=== PATIENT | female | born 1950 | race African-American/Black ===

== ENCOUNTER 2016-08-11 16:53 | Inpatient (IN) | payer MEDICARE, MEDICAID ==
[~2016-08-11] VITALS: Ht 170.2 cm; Wt 73.6 kg
[2016-08-11] MEDS ORDERED: SODIUM CHLORIDE 0.9% 1,000 ML IV ONE (17:12)
[2016-08-11] MEDS ORDERED: DILTIAZEM HCL 25 MG/5 ML VIAL IV ONE (17:15)
[2016-08-11] MEDS ORDERED: ASPirin 81 mg TAB PO ONE (17:15)
[2016-08-11] MEDS ORDERED: DILTIAZEM 125mg/125ml BAG KIT 125 ML IV ONE (18:00)
[2016-08-11 18:32] LABS: Basophils # (auto) 0 uL; Basophils % (auto) 0.3 % (0.0-2.0); Eosinophils # (auto) 0.1 uL; Eosinophils % (auto) 0.5 % (0.0-7.0); Hematocrit 29.9 % (36.0-46.0); Hemoglobin 9.7 g/dL (12.2-16.2); Lymphocytes # (auto) 2.7 uL; Lymphocytes % (auto) 23.5 % (10.0-50.0); Mean Corpuscular Hemoglobin 27.6 pg (28.0-32.0); Mean Corpuscular Hgb Conc. 32.5 g/dL (32.0-36.0); Mean Corpuscular Volume 84.9 fL (80.0-100.0); Mean Platelet Volume 8.5 fL (7.4-10.4); Neutrophils # (auto) 7.5 uL; Neutrophils % (auto) 66.7 % (37.0-80.0); Platelet Count (auto) 294 10^3/uL (140-450); White Blood Cell 11.3 10^3/uL (4.4-10.8)
[2016-08-11 18:37] LABS: INR 1.2 (0.9-1.15); Prothrombin Time 13.1 sec (9.37-12.3)
[2016-08-11 18:40] LABS: Albumin 2.9 g/dL (3.4-5.0); BUN/Creatinine Ratio 28.1; Calcium 8.7 mg/dL (8.5-10.1); Magnesium 1.7 mg/dL (1.6-2.6); Potassium 3.5 mmol/L (3.5-5.1)
[2016-08-11 18:48] LABS: Bilirubin, Total 0.4 mg/dL (0.2-1.0); Total Protein 6.9 g/dL (6.4-8.2)
[2016-08-11] MEDS ORDERED: AMIODARONE HCL 150 MG in D5W 5% 100 ML IV ONE (19:00)
[2016-08-11 19:02] LABS: B-Type Natriuretic Peptide 27.86 pg/mL (0-100)
[2016-08-11 19:08] LABS: Temperature: 23.9 C (20.0-25.0)
[2016-08-11] MEDS ORDERED: AMIODARONE HCL 900 MG in DEXTROSE 500 ML IV SCH (19:10)
[2016-08-11] MEDS ORDERED: MORPHINE SULF INJ 2 MG/ML SYRINGE 1ML IV PRN (19:15)
[2016-08-11] MEDS ORDERED: TEMAZEPAM 15 MG CAP PO PRN (19:15)
[2016-08-11] MEDS ORDERED: NITROGLYCERIN 0.4 MG SL TAB SL PRN (19:15)
[2016-08-11] MEDS ORDERED: DOCUSATE SOD 100 MG CAP PO PRN (19:15)
[2016-08-11] MEDS ORDERED: ONDANSETRON HCL 4 MG/2 ML VIAL IV PRN (19:15)
[2016-08-11] MEDS ORDERED: ACETAMINOPHEN 325 MG TAB PO PRN (19:15)
[2016-08-11] MEDS: ENOXAPARIN SOD 40 MG/0.4 ML SYRINGE SC SCH (20:34)
[2016-08-11 21:24] LABS: Urine Bilirubin Negative (Negative); Urine Blood Negative /uL (Negative); Urine Color Yellow (Yellow); Urine Glucose Normal (Normal); Urine Hyaline Cast FEW /lpf (0 - 2); Urine Ketone Negative (Negative); Urine Nitrite Negative (Negative); Urine RBC <1 /hpf (0 - 4); Urine Squamous Epithelial Cell FEW /hpf (<5); Urine Urobilinogen Normal (Negative)
[2016-08-11] MEDS ORDERED: FAMOTIDINE 20 MG TAB PO SCH (22:00)
[2016-08-11 23:36] VITALS: BP 124/99
[2016-08-12] VITALS (93 sets, daily range): BP systolic 92–235; BP diastolic 35–99
[2016-08-12] MEDS: SENNA 8.6 MG TAB PO SCH ×2 (00:45→22:00)
[2016-08-12] MEDS: SODIUM CHLOR 0.9% PF (SALINE LOCK) 10ML VIAL IV SCH ×5 (00:45→22:00)
[2016-08-12] MEDS: METOPROLOL TARTRATE 25 MG TAB PO SCH ×4 (00:45→23:00)
[2016-08-12] MEDS: OXYBUTYNIN CHL 5 MG TAB PO SCH ×4 (00:45→22:00)
[2016-08-12] MEDS: BOOST PLUS 8 ounce PO SCH ×5 (00:45→22:00)
[2016-08-12] MEDS: ATORVASTATIN 20 MG TAB PO SCH ×2 (00:45→22:00)
[2016-08-12] MEDS: AMIODARONE HCL 900 MG in DEXTROSE 500 ML IV SCH (01:14)
[2016-08-12 04:19] LABS: Basophils # (auto) 0.1 uL; Basophils % (auto) 0.9 % (0.0-2.0); Eosinophils # (auto) 0.2 uL; Eosinophils % (auto) 1.5 % (0.0-7.0); Hematocrit 28.3 % (36.0-46.0); Hemoglobin 9.2 g/dL (12.2-16.2); Lymphocytes # (auto) 4.1 uL; Lymphocytes % (auto) 34.5 % (10.0-50.0); Mean Corpuscular Hemoglobin 27.8 pg (28.0-32.0); Mean Corpuscular Hgb Conc. 32.5 g/dL (32.0-36.0); Mean Corpuscular Volume 85.4 fL (80.0-100.0); Mean Platelet Volume 8.6 fL (7.4-10.4); Monocytes # (auto) 1.2 uL; Monocytes % (auto) 10.4 % (0.0-12.0); Neutrophils # (auto) 6.3 uL; Neutrophils % (auto) 52.7 % (37.0-80.0); Platelet Count (auto) 280 10^3/uL (140-450); White Blood Cell 11.9 10^3/uL (4.4-10.8)
[2016-08-12 04:57] LABS: Albumin 2.7 g/dL (3.4-5.0); Calcium 8.3 mg/dL (8.5-10.1); Potassium 3.8 mmol/L (3.5-5.1)
[2016-08-12 04:58] LABS: BUN/Creatinine Ratio 35.9
[2016-08-12 05:03] LABS: Bilirubin, Total 0.5 mg/dL (0.2-1.0); Total Protein 6.5 g/dL (6.4-8.2)
[2016-08-12] MEDS: LEVOTHYROXINE SODIUM 100 MCG TAB PO SCH (06:37)
[2016-08-12] MEDS ORDERED: ASPirin-EC 325mg tab PO SCH (10:00)
[2016-08-12] MEDS: ENOXAPARIN SOD 40 MG/0.4 ML SYRINGE SC SCH (10:40)
[2016-08-12] MEDS: PANTOPRAZOLE 40 MG TAB PO SCH (10:41)
[2016-08-12] MEDS: MULTIPLE VITAMIN TAB PO SCH (10:41)
[2016-08-12] MEDS: LISINOPRIL 20 MG TAB PO SCH (10:41)
[2016-08-12] MEDS: NIFEdipine ER 30 MG TAB PO SCH (11:23)
[2016-08-12] MEDS: cloNIDine HCL 0.1 MG TAB PO PRN ×2 (12:24→14:37)
[2016-08-12] MEDS ORDERED: LIDOCAINE 1% HCL (LOCAL ANESTH.) INJ 20ML MDV ID ONE (14:30)
[2016-08-12] MEDS: MORPHINE SULF INJ 2 MG/ML SYRINGE 1ML IV PRN (14:37)
[2016-08-12] MEDS: [UNRECOGNIZED DRUG - OTHER] TOP SCH (19:59)
[2016-08-12] MEDS ORDERED: PATIENTS OWN MEDICATION (ELIQUIS 5 MG) PO SCH (22:00)
[2016-08-12] MEDS: APIXABAN 5 MG TAB PO SCH (22:00)
[2016-08-13] VITALS (61 sets, daily range): BP systolic 89–140; BP diastolic 26–83
[2016-08-13] MEDS: AMIODARONE HCL 900 MG in DEXTROSE 500 ML IV SCH (01:10)
[2016-08-13 03:58] LABS: Basophils # (auto) 0.1 uL; Basophils % (auto) 0.7 % (0.0-2.0); Eosinophils # (auto) 0.1 uL; Hematocrit 27.7 % (36.0-46.0); Lymphocytes # (auto) 2.9 uL; Lymphocytes % (auto) 22.5 % (10.0-50.0); Mean Corpuscular Hgb Conc. 32.7 g/dL (32.0-36.0); Mean Corpuscular Volume 85.6 fL (80.0-100.0); Mean Platelet Volume 8.6 fL (7.4-10.4); Monocytes # (auto) 1.2 uL; Neutrophils # (auto) 8.6 uL; Neutrophils % (auto) 66.8 % (37.0-80.0); Platelet Count (auto) 276 10^3/uL (140-450); Red Cell Distribution Width 15.8 % (11.6-16.0); White Blood Cell 12.9 10^3/uL (4.4-10.8)
[2016-08-13 04:26] LABS: Albumin 2.6 g/dL (3.4-5.0); BUN/Creatinine Ratio 27.3; Calcium 8.1 mg/dL (8.5-10.1); Potassium 3.9 mmol/L (3.5-5.1)
[2016-08-13 04:34] LABS: Bilirubin, Total 0.5 mg/dL (0.2-1.0); Total Protein 6.3 g/dL (6.4-8.2)
[2016-08-13] MEDS: OXYBUTYNIN CHL 5 MG TAB PO SCH ×3 (06:00→22:02)
[2016-08-13] MEDS: BOOST PLUS 8 ounce PO SCH ×4 (06:00→21:26)
[2016-08-13] MEDS: SODIUM CHLOR 0.9% PF (SALINE LOCK) 10ML VIAL IV SCH ×5 (06:00→21:26)
[2016-08-13] MEDS: LEVOTHYROXINE SODIUM 100 MCG TAB PO SCH (06:46)
[2016-08-13] MEDS: MORPHINE SULF INJ 2 MG/ML SYRINGE 1ML IV PRN (08:18)
[2016-08-13] MEDS ORDERED: ACETAMINOPHEN 325 MG TAB PO PRN (09:15)
[2016-08-13] MEDS ORDERED: EMOLCRE EX (09:39)
[2016-08-13] MEDS ORDERED: LEVO100T8 PO (09:39)
[2016-08-13] MEDS ORDERED: OMEP20CA5 PO (09:39)
[2016-08-13] MEDS ORDERED: ASPI81CH43 PO (09:39)
[2016-08-13] MEDS ORDERED: SENN-152 PO (09:39)
[2016-08-13] MEDS ORDERED: ATOR10TA52 PO (09:39)
[2016-08-13] MEDS ORDERED: LISI-646 PO (09:39)
[2016-08-13] MEDS ORDERED: METO25TA5 PO (09:39)
[2016-08-13] MEDS ORDERED: NIF10C PO (09:39)
[2016-08-13] MEDS: ENOXAPARIN SOD 40 MG/0.4 ML SYRINGE SC SCH (09:45)
[2016-08-13] MEDS: APIXABAN 5 MG TAB PO SCH ×2 (09:45→22:03)
[2016-08-13] MEDS: PANTOPRAZOLE 40 MG TAB PO SCH (09:46)
[2016-08-13] MEDS: NIFEdipine ER 30 MG TAB PO SCH (09:46)
[2016-08-13] MEDS: MULTIPLE VITAMIN TAB PO SCH (09:46)
[2016-08-13] MEDS: METOPROLOL TARTRATE 25 MG TAB PO SCH ×2 (09:46→22:00)
[2016-08-13] MEDS: LISINOPRIL 20 MG TAB PO SCH (09:47)
[2016-08-13] MEDS ORDERED: AMIODARONE HCL 200 MG TAB PO SCH (10:00)
[2016-08-13] MEDS: [UNRECOGNIZED DRUG - OTHER] TOP SCH (10:53)
[2016-08-13] MEDS ORDERED: AZITHROMYCIN 500MG/D5W 250ML 250 ML IV ONE (12:00)
[2016-08-13] MEDS ORDERED: AMIODARONE HCL 200 MG TAB PO ONE (13:30)
[2016-08-13] MEDS: AMIODARONE HCL 200 MG TAB PO SCH (22:01)
[2016-08-13] MEDS: SENNA 8.6 MG TAB PO SCH (22:03)
[2016-08-13] MEDS: ATORVASTATIN 20 MG TAB PO SCH (22:03)
[2016-08-14 05:30] VITALS: BP 97/53
[2016-08-14] MEDS: SODIUM CHLOR 0.9% PF (SALINE LOCK) 10ML VIAL IV SCH ×5 (05:48→22:23)
[2016-08-14] MEDS: BOOST PLUS 8 ounce PO SCH ×4 (05:49→22:23)
[2016-08-14] MEDS: AMIODARONE HCL 200 MG TAB PO SCH ×3 (06:00→22:24)
[2016-08-14] MEDS: OXYBUTYNIN CHL 5 MG TAB PO SCH ×3 (06:00→22:23)
[2016-08-14] MEDS: LEVOTHYROXINE SODIUM 100 MCG TAB PO SCH (06:51)
[2016-08-14 07:06] LABS: BUN/Creatinine Ratio 34.3; Calcium 8.3 mg/dL (8.5-10.1)
[2016-08-14 08:32] LABS: Basophils # (auto) 0.1 uL; Basophils % (auto) 0.7 % (0.0-2.0); Eosinophils # (auto) 0.3 uL; Eosinophils % (auto) 2.4 % (0.0-7.0); Hematocrit 26.2 % (36.0-46.0); Hemoglobin 8.6 g/dL (12.2-16.2); Lymphocytes # (auto) 4.2 uL; Lymphocytes % (auto) 32.8 % (10.0-50.0); Mean Corpuscular Hgb Conc. 33.1 g/dL (32.0-36.0); Mean Corpuscular Volume 84.7 fL (80.0-100.0); Monocytes # (auto) 1.2 uL; Monocytes % (auto) 9.5 % (0.0-12.0); Neutrophils % (auto) 54.6 % (37.0-80.0); Platelet Count (auto) 256 10^3/uL (140-450); Red Cell Distribution Width 15.6 % (11.6-16.0); White Blood Cell 12.8 10^3/uL (4.4-10.8)
[2016-08-14 09:06] VITALS: BP 108/57
[2016-08-14] MEDS: METOPROLOL TARTRATE 25 MG TAB PO SCH ×2 (10:00→22:24)
[2016-08-14] MEDS: [UNRECOGNIZED DRUG - OTHER] TOP SCH (10:00)
[2016-08-14] MEDS: APIXABAN 5 MG TAB PO SCH ×2 (10:59→22:23)
[2016-08-14] MEDS: LISINOPRIL 20 MG TAB PO SCH (11:00)
[2016-08-14] MEDS: PANTOPRAZOLE 40 MG TAB PO SCH (11:01)
[2016-08-14] MEDS: AZITHROMYCIN 500MG/D5W 250ML 250 ML IV SCH (11:31)
[2016-08-14] MEDS: MULTIPLE VITAMIN TAB PO SCH (11:31)
[2016-08-14 12:46] VITALS: BP 106/46
[2016-08-14] MEDS: HYDROcodone-ACET 5/325MG TAB PO PRN (14:25)
[2016-08-14] MEDS: ALBUTEROL SULF 2.5 MG/0.5ML(0.5%) NEB SOLN NEB SCH ×2 (14:53→19:13)
[2016-08-14 17:32] VITALS: BP 128/54
[2016-08-14 20:39] VITALS: BP 104/46
[2016-08-14 22:00] VITALS: BP 132/74
[2016-08-14] MEDS: SENNA 8.6 MG TAB PO SCH (22:23)
[2016-08-14] MEDS: ATORVASTATIN 20 MG TAB PO SCH (22:23)
[2016-08-15 05:35] VITALS: BP 134/57
[2016-08-15] MEDS: OXYBUTYNIN CHL 5 MG TAB PO SCH ×3 (05:57→23:31)
[2016-08-15] MEDS: BOOST PLUS 8 ounce PO SCH ×4 (05:58→22:00)
[2016-08-15] MEDS: SODIUM CHLOR 0.9% PF (SALINE LOCK) 10ML VIAL IV SCH ×5 (05:58→23:32)
[2016-08-15] MEDS: AMIODARONE HCL 200 MG TAB PO SCH ×3 (05:58→23:15)
[2016-08-15] MEDS: LEVOTHYROXINE SODIUM 100 MCG TAB PO SCH (05:58)
[2016-08-15 06:38] LABS: Basophils # (auto) 0 uL; Basophils % (auto) 0.4 % (0.0-2.0); Eosinophils # (auto) 0.3 uL; Eosinophils % (auto) 2.9 % (0.0-7.0); Hematocrit 28.1 % (36.0-46.0); Hemoglobin 9.3 g/dL (12.2-16.2); Lymphocytes # (auto) 2.9 uL; Lymphocytes % (auto) 25.2 % (10.0-50.0); Mean Corpuscular Hemoglobin 27.9 pg (28.0-32.0); Mean Corpuscular Volume 84.4 fL (80.0-100.0); Mean Platelet Volume 8.7 fL (7.4-10.4); Monocytes # (auto) 1.3 uL; Monocytes % (auto) 11.4 % (0.0-12.0); Neutrophils # (auto) 6.8 uL; Neutrophils % (auto) 60.1 % (37.0-80.0); Platelet Count (auto) 299 10^3/uL (140-450); Red Cell Distribution Width 15.9 % (11.6-16.0); White Blood Cell 11.3 10^3/uL (4.4-10.8)
[2016-08-15 07:01] LABS: Calcium 8.8 mg/dL (8.5-10.1)
[2016-08-15 07:03] LABS: BUN/Creatinine Ratio 32.5
[2016-08-15 07:29] VITALS: BP 115/63
[2016-08-15] MEDS: ALBUTEROL SULF 2.5 MG/0.5ML(0.5%) NEB SOLN NEB SCH ×4 (07:47→19:48)
[2016-08-15] MEDS: METOPROLOL TARTRATE 25 MG TAB PO SCH ×2 (10:00→23:14)
[2016-08-15] MEDS: [UNRECOGNIZED DRUG - OTHER] TOP SCH (10:00)
[2016-08-15] MEDS: APIXABAN 5 MG TAB PO SCH ×2 (10:13→23:15)
[2016-08-15] MEDS: LISINOPRIL 20 MG TAB PO SCH (10:13)
[2016-08-15] MEDS: MULTIPLE VITAMIN TAB PO SCH (10:13)
[2016-08-15] MEDS: PANTOPRAZOLE 40 MG TAB PO SCH (10:13)
[2016-08-15 11:26] VITALS: BP 133/55
[2016-08-15] MEDS: AZITHROMYCIN 500MG/D5W 250ML 250 ML IV SCH (12:18)
[2016-08-15] MEDS: HYDROcodone-ACET 5/325MG TAB PO PRN (14:16)
[2016-08-15 16:20] VITALS: BP 144/58
[2016-08-15 22:00] VITALS: BP 132/54
[2016-08-15] MEDS: SENNA 8.6 MG TAB PO SCH (23:15)
[2016-08-15] MEDS: ATORVASTATIN 20 MG TAB PO SCH (23:31)
[2016-08-16 05:00] VITALS: BP 156/61
[2016-08-16] MEDS: BOOST PLUS 8 ounce PO SCH ×2 (06:00→14:20)
[2016-08-16] MEDS: SODIUM CHLOR 0.9% PF (SALINE LOCK) 10ML VIAL IV SCH ×3 (06:19→14:21)
[2016-08-16] MEDS: OXYBUTYNIN CHL 5 MG TAB PO SCH ×2 (06:20→14:21)
[2016-08-16] MEDS: LEVOTHYROXINE SODIUM 100 MCG TAB PO SCH (06:20)
[2016-08-16] MEDS: AMIODARONE HCL 200 MG TAB PO SCH ×2 (06:20→14:22)
[2016-08-16] MEDS: ALBUTEROL SULF 2.5 MG/0.5ML(0.5%) NEB SOLN NEB SCH ×3 (06:22→14:39)
[2016-08-16 08:05] VITALS: BP 148/66
[2016-08-16] MEDS: HYDROcodone-ACET 5/325MG TAB PO PRN (08:24)
[2016-08-16 08:44] LABS: Basophils # (auto) 0 uL; Basophils % (auto) 0.4 % (0.0-2.0); Eosinophils # (auto) 0.3 uL; Eosinophils % (auto) 2.4 % (0.0-7.0); Hematocrit 28.3 % (36.0-46.0); Hemoglobin 9.3 g/dL (12.2-16.2); Lymphocytes # (auto) 3.6 uL; Lymphocytes % (auto) 31.5 % (10.0-50.0); Mean Corpuscular Hemoglobin 27.6 pg (28.0-32.0); Mean Corpuscular Hgb Conc. 32.9 g/dL (32.0-36.0); Mean Corpuscular Volume 83.8 fL (80.0-100.0); Mean Platelet Volume 8.2 fL (7.4-10.4); Monocytes # (auto) 0.9 uL; Monocytes % (auto) 7.9 % (0.0-12.0); Neutrophils # (auto) 6.6 uL; Neutrophils % (auto) 57.8 % (37.0-80.0); Platelet Count (auto) 305 10^3/uL (140-450); Red Cell Distribution Width 16.2 % (11.6-16.0); White Blood Cell 11.4 10^3/uL (4.4-10.8)
[2016-08-16] MEDS: [UNRECOGNIZED DRUG - OTHER] TOP SCH (10:00)
[2016-08-16] MEDS: METOPROLOL TARTRATE 25 MG TAB PO SCH (11:00)
[2016-08-16] MEDS: AZITHROMYCIN 500MG/D5W 250ML 250 ML IV SCH (11:00)
[2016-08-16] MEDS: APIXABAN 5 MG TAB PO SCH (11:00)
[2016-08-16] MEDS: MULTIPLE VITAMIN TAB PO SCH (11:01)
[2016-08-16] MEDS: PANTOPRAZOLE 40 MG TAB PO SCH (11:01)
[2016-08-16] MEDS: LISINOPRIL 20 MG TAB PO SCH (11:01)
[2016-08-16 11:14] VITALS: BP 129/52
[2016-08-16 16:06] VITALS: BP 132/69
== END 2016-08-16 17:30 | disposition home or self-care (01) | DRG 64 ==
LOC: ER 16:53 → EDBD 16:53 → TELE 16:54 → ICU WEST 23:23 → TELE-WESTW 08-13 17:07
PROVIDERS: ADMIT Internal Medicine; ATTEND Family Medicine
PROC: 02HV33Z Insertion of Infusion Device into Superior Vena Cava, Percutaneous Approach (ICD-10-PCS; principal; 2016-08-12)
DX: I63.9 Cerebral infarction, unspecified (principal); E43 Unspecified severe protein-calorie malnutrition; I50.33 Acute on chronic diastolic (congestive) heart failure; I48.92 Unspecified atrial flutter; I69.351 Hemiplegia and hemiparesis following cerebral infarction affecting right dominant side; I65.21 Occlusion and stenosis of right carotid artery; H53.461 Homonymous bilateral field defects, right side; I48.91 Unspecified atrial fibrillation; E78.5 Hyperlipidemia, unspecified; D63.8 Anemia in other chronic diseases classified elsewhere; E03.9 Hypothyroidism, unspecified; I70.0 Atherosclerosis of aorta; I11.0 Hypertensive heart disease with heart failure; I27.2 Other secondary pulmonary hypertension; I35.0 Nonrheumatic aortic (valve) stenosis; I69.320 Aphasia following cerebral infarction; Z82.49 Family history of ischemic heart disease and other diseases of the circulatory system; Z79.82 Long term (current) use of aspirin; Z79.01 Long term (current) use of anticoagulants; Z68.25 Body mass index [BMI] 25.0-25.9, adult
CPT/HCPCS: 36415; 36569; 70450; 70551; 71010; 80048; 80053; 81001; 82962; 83735; 83880; 84443; 84484; 85025; 85610; 85730; 87070; 87081; 87086; 87205; 92610; 93005; 93306; 93886; 94640; 95819; 96365; 96367; 96375; 97163; 97530; 99291; J7060

== ENCOUNTER 2016-11-13 23:45 | Inpatient (IN) | payer MEDICARE, MEDICAID ==
[~2016-11-13] VITALS: Ht 160 cm; Wt 67.3 kg
[~2016-11-13 23:45] MED LIST: ASPI81CH43 PO; ATOR10TA52 PO; EMOLCRE EX; LEVO100T8 PO; LISI-646 PO; METO25TA5 PO; NIF10C PO; OMEP20CA74 PO; SENN-152 PO
[2016-11-14 01:06] LABS: INR 1.05 (0.9-1.15); Partial Thromboplastin Time 29.2 sec (22.64-33.71); Prothrombin Time 11.4 sec (9.37-12.3)
[2016-11-14 01:12] LABS: Albumin 3.1 g/dL (3.4-5.0); Anion Gap 8 (5-15); Aspartate Aminotransferase 14 U/L (15-37); BUN/Creatinine Ratio 10.3; Blood Urea Nitrogen 6 mg/dL (7-18); Calcium 9.1 mg/dL (8.5-10.1); Carbon Dioxide 25 mmol/L (21-32); Chloride 107 mmol/L (98-107); GFR African American 134 mL/min; GFR Non-African American 111 mL/min; Glucose 96 mg/dL (74-106); Magnesium 2.4 mg/dL (1.6-2.6); Potassium 3.5 mmol/L (3.5-5.1); Sodium 140 mmol/L (136-145)
[2016-11-14 01:18] LABS: Alkaline Phosphatase 133 U/L (45-117); Bilirubin, Total 0.4 mg/dL (0.2-1.0); Total Protein 8.2 g/dL (6.4-8.2)
[2016-11-14 01:26] LABS: Basophils # (auto) 0.1 uL; Basophils % (auto) 0.6 % (0.0-2.0); CONDITION Y; DEFINITIVE SEE PRINTOUT; Eosinophils # (auto) 0.2 uL; Eosinophils % (auto) 1.5 % (0.0-7.0); Hematocrit 32.8 % (36.0-46.0); Hemoglobin 10.4 g/dL (12.2-16.2); Lymphocytes # (auto) 6.7 uL; Lymphocytes % (auto) 49.2 % (10.0-50.0); Mean Corpuscular Hemoglobin 27.4 pg (28.0-32.0); Mean Corpuscular Hgb Conc. 31.6 g/dL (32.0-36.0); Mean Corpuscular Volume 86.9 fL (80.0-100.0); Mean Platelet Volume 8.2 fL (7.4-10.4); Monocytes # (auto) 0.9 uL; Monocytes % (auto) 6.4 % (0.0-12.0); Neutrophils # (auto) 5.8 uL; Neutrophils % (auto) 42.3 % (37.0-80.0); Platelet Count (auto) 488 10^3/uL (140-450); Red Cell Distribution Width 17.2 % (11.6-16.0); White Blood Cell 13.6 10^3/uL (4.4-10.8)
[2016-11-14] MEDS ORDERED: ASPirin 81 mg TAB PO ONE (02:30)
[2016-11-14] MEDS ORDERED: CYCLOBENZAPRINE HCL 10 MG TAB PO PRN (06:45)
[2016-11-14] MEDS: SODIUM CHLORIDE 0.9% 1,000 ML IV SCH ×3 (06:57→16:23)
[2016-11-14] MEDS: LEVOTHYROXINE SODIUM 50 MCG TAB PO SCH (06:58)
[2016-11-14] MEDS ORDERED: cefTRIAXone 1GM/50ML D5W 50 ML IV ONE (08:00)
[2016-11-14 09:23] VITALS: BP 149/76
[2016-11-14] MEDS: PANTOPRAZOLE 40 MG/10 ML VIAL IV SCH (09:58)
[2016-11-14] MEDS: APIXABAN 5 MG TAB PO SCH ×2 (09:58→21:56)
[2016-11-14] MEDS: NIFEdipine ER 30 MG TAB PO SCH (09:59)
[2016-11-14] MEDS: METOPROLOL TARTRATE 50 MG TAB PO SCH ×2 (09:59→21:56)
[2016-11-14] MEDS ORDERED: ENOXAPARIN SOD 40 MG/0.4 ML SYRINGE SC SCH (10:00)
[2016-11-14] MEDS ORDERED: ASPirin 81 mg TAB PO SCH (10:00)
[2016-11-14] MEDS ORDERED: PATIENTS OWN MEDICATION (ELIQUIS 5 MG) PO SCH (10:00)
[2016-11-14 13:00] VITALS: BP 141/73
[2016-11-14] MEDS: OXYBUTYNIN CHL 5 MG TAB PO SCH ×2 (15:29→21:56)
[2016-11-14 16:13] LABS: Cholesterol 92 mg/dL (< 200); HDL Cholesterol 37 mg/dL (40-59); LDL Cholesterol 57 mg/dL (< 100); Triglycerides 56 mg/dL (< 150)
[2016-11-14 21:31] VITALS: BP 155/79
[2016-11-14] MEDS: ATORVASTATIN 20 MG TAB PO SCH (21:56)
[2016-11-15 05:12] VITALS: BP 128/66
[2016-11-15] MEDS: LEVOTHYROXINE SODIUM 50 MCG TAB PO SCH (06:13)
[2016-11-15] MEDS: OXYBUTYNIN CHL 5 MG TAB PO SCH ×3 (06:13→21:49)
[2016-11-15 06:21] LABS: Basophils # (auto) 0 uL; Basophils % (auto) 0.4 % (0.0-2.0); CONDITION Y; Eosinophils # (auto) 0.1 uL; Eosinophils % (auto) 1.2 % (0.0-7.0); Hematocrit 36.3 % (36.0-46.0); Hemoglobin 11.7 g/dL (12.2-16.2); Lymphocytes # (auto) 2.8 uL; Lymphocytes % (auto) 27.1 % (10.0-50.0); Mean Corpuscular Hemoglobin 28.4 pg (28.0-32.0); Mean Corpuscular Hgb Conc. 32.4 g/dL (32.0-36.0); Mean Corpuscular Volume 87.8 fL (80.0-100.0); Monocytes # (auto) 0.9 uL; Monocytes % (auto) 8.5 % (0.0-12.0); Neutrophils # (auto) 6.4 uL; Neutrophils % (auto) 62.8 % (37.0-80.0); Platelet Count (auto) 428 10^3/uL (140-450); Red Cell Distribution Width 18.2 % (11.6-16.0); White Blood Cell 10.2 10^3/uL (4.4-10.8)
[2016-11-15 07:20] LABS: Potassium 4.6 mmol/L (3.5-5.1)
[2016-11-15 07:21] LABS: BUN/Creatinine Ratio 10.3; Bilirubin, Total 0.3 mg/dL (0.2-1.0); Calcium 8.8 mg/dL (8.5-10.1); Total Protein 8.1 g/dL (6.4-8.2)
[2016-11-15 07:22] LABS: Albumin 2.8 g/dL (3.4-5.0)
[2016-11-15 08:00] VITALS: BP 128/66
[2016-11-15] MEDS: SODIUM CHLORIDE 0.9% 1,000 ML IV SCH (08:35)
[2016-11-15] MEDS: cefTRIAXone 1GM/50ML D5W 50 ML IV SCH (08:35)
[2016-11-15 09:00] VITALS: BP 146/71
[2016-11-15] MEDS: NIFEdipine ER 30 MG TAB PO SCH (09:51)
[2016-11-15] MEDS: APIXABAN 5 MG TAB PO SCH ×2 (09:51→21:49)
[2016-11-15] MEDS: METOPROLOL TARTRATE 50 MG TAB PO SCH ×2 (09:51→21:50)
[2016-11-15] MEDS: PANTOPRAZOLE 40 MG/10 ML VIAL IV SCH (09:52)
[2016-11-15] MEDS ORDERED: ASPirin 325 MG TAB PO SCH (10:00)
[2016-11-15 13:00] VITALS: BP 118/56
[2016-11-15 17:00] VITALS: BP 120/62
[2016-11-15] MEDS: ATORVASTATIN 20 MG TAB PO SCH (21:50)
[2016-11-15 22:00] VITALS: BP 125/63
[2016-11-16] MEDS: SODIUM CHLORIDE 0.9% 1,000 ML IV SCH ×2 (01:20→17:22)
[2016-11-16 05:14] VITALS: BP 124/61
[2016-11-16] MEDS: OXYBUTYNIN CHL 5 MG TAB PO SCH ×3 (05:43→21:46)
[2016-11-16] MEDS: LEVOTHYROXINE SODIUM 50 MCG TAB PO SCH (05:43)
[2016-11-16 07:37] VITALS: BP 131/63
[2016-11-16] MEDS: cefTRIAXone 1GM/50ML D5W 50 ML IV SCH (09:27)
[2016-11-16] MEDS: PANTOPRAZOLE 40 MG/10 ML VIAL IV SCH (09:27)
[2016-11-16] MEDS: APIXABAN 5 MG TAB PO SCH ×2 (09:27→21:44)
[2016-11-16] MEDS: NIFEdipine ER 30 MG TAB PO SCH (09:28)
[2016-11-16] MEDS: METOPROLOL TARTRATE 50 MG TAB PO SCH ×2 (09:28→21:46)
[2016-11-16] MEDS: BOOST PLUS 8 ounce PO SCH ×3 (12:31→21:46)
[2016-11-16 13:00] VITALS: BP 139/69
[2016-11-16 13:45] LABS: Urine Bilirubin Negative (Negative); Urine Blood TRACE /uL (Negative); Urine Color Yellow (Yellow); Urine Glucose Normal (Normal); Urine Ketone Negative (Negative); Urine Nitrite Negative (Negative); Urine RBC 8 /hpf (0 - 4); Urine Squamous Epithelial Cell FEW /hpf (<5); Urine Urobilinogen Normal (Negative)
[2016-11-16 16:57] VITALS: BP 145/64
[2016-11-16] MEDS: ACETAMINOPHEN 325 MG TAB PO PRN (21:43)
[2016-11-16] MEDS: ATORVASTATIN 20 MG TAB PO SCH (21:45)
[2016-11-16 22:00] VITALS: BP 137/67
[2016-11-16 23:30] VITALS: BP 127/63
[2016-11-17 05:26] LABS: Basophils # (auto) 0.1 uL; Basophils % (auto) 0.7 % (0.0-2.0); CONDITION Y; Eosinophils # (auto) 0.3 uL; Hematocrit 35.5 % (36.0-46.0); Hemoglobin 11.7 g/dL (12.2-16.2); Lymphocytes # (auto) 4.4 uL; Lymphocytes % (auto) 30.8 % (10.0-50.0); Mean Corpuscular Hemoglobin 28.5 pg (28.0-32.0); Mean Corpuscular Hgb Conc. 32.9 g/dL (32.0-36.0); Mean Corpuscular Volume 86.7 fL (80.0-100.0); Mean Platelet Volume 7.5 fL (7.4-10.4); Monocytes # (auto) 0.8 uL; Monocytes % (auto) 5.3 % (0.0-12.0); Neutrophils # (auto) 8.8 uL; Neutrophils % (auto) 61.2 % (37.0-80.0); Platelet Count (auto) 489 10^3/uL (140-450); Red Cell Distribution Width 17.3 % (11.6-16.0); White Blood Cell 14.4 10^3/uL (4.4-10.8)
[2016-11-17 05:48] LABS: Albumin 2.9 g/dL (3.4-5.0); Calcium 8.7 mg/dL (8.5-10.1); Potassium 4.5 mmol/L (3.5-5.1)
[2016-11-17] MEDS: ACETAMINOPHEN 325 MG TAB PO PRN (05:48)
[2016-11-17] MEDS: BOOST PLUS 8 ounce PO SCH ×4 (05:50→22:16)
[2016-11-17] MEDS: OXYBUTYNIN CHL 5 MG TAB PO SCH ×3 (05:50→22:17)
[2016-11-17 05:51] LABS: Bilirubin, Total 0.2 mg/dL (0.2-1.0)
[2016-11-17] MEDS: LEVOTHYROXINE SODIUM 50 MCG TAB PO SCH (06:40)
[2016-11-17 08:00] VITALS: BP 106/57
[2016-11-17] MEDS: cefTRIAXone 1GM/50ML D5W 50 ML IV SCH (08:45)
[2016-11-17] MEDS: METOPROLOL TARTRATE 50 MG TAB PO SCH ×2 (09:27→22:17)
[2016-11-17] MEDS: APIXABAN 5 MG TAB PO SCH ×2 (09:27→22:17)
[2016-11-17] MEDS: PANTOPRAZOLE 40 MG/10 ML VIAL IV SCH (09:28)
[2016-11-17] MEDS: NIFEdipine ER 30 MG TAB PO SCH (09:28)
[2016-11-17 13:00] VITALS: BP 117/61
[2016-11-17] MEDS: SODIUM CHLORIDE 0.9% 1,000 ML IV SCH (14:21)
[2016-11-17 17:00] VITALS: BP 130/68
[2016-11-17 20:00] VITALS: BP 146/63
[2016-11-17 22:00] VITALS: BP 146/63
[2016-11-17] MEDS: ATORVASTATIN 20 MG TAB PO SCH (22:17)
[2016-11-18] MEDS: SODIUM CHLORIDE 0.9% 1,000 ML IV SCH ×2 (03:20→20:10)
[2016-11-18 05:30] LABS: Basophils # (auto) 0.1 uL; Basophils % (auto) 0.7 % (0.0-2.0); CONDITION Y; Eosinophils # (auto) 0.2 uL; Eosinophils % (auto) 1.7 % (0.0-7.0); Hematocrit 33.5 % (36.0-46.0); Hemoglobin 10.9 g/dL (12.2-16.2); Lymphocytes # (auto) 4.9 uL; Lymphocytes % (auto) 34.1 % (10.0-50.0); Mean Corpuscular Hemoglobin 28.4 pg (28.0-32.0); Mean Corpuscular Hgb Conc. 32.6 g/dL (32.0-36.0); Mean Corpuscular Volume 87.3 fL (80.0-100.0); Mean Platelet Volume 7.5 fL (7.4-10.4); Monocytes % (auto) 6.8 % (0.0-12.0); Neutrophils # (auto) 8.1 uL; Neutrophils % (auto) 56.7 % (37.0-80.0); Platelet Count (auto) 524 10^3/uL (140-450); Red Cell Distribution Width 17.4 % (11.6-16.0); White Blood Cell 14.4 10^3/uL (4.4-10.8)
[2016-11-18 05:35] VITALS: BP 125/71
[2016-11-18 05:58] LABS: Albumin 3.1 g/dL (3.4-5.0); BUN/Creatinine Ratio 29.6; Calcium 9.1 mg/dL (8.5-10.1); Potassium 4.1 mmol/L (3.5-5.1)
[2016-11-18] MEDS: BOOST PLUS 8 ounce PO SCH ×4 (06:00→22:40)
[2016-11-18 06:01] LABS: Bilirubin, Total 0.3 mg/dL (0.2-1.0); Total Protein 8.1 g/dL (6.4-8.2)
[2016-11-18] MEDS: OXYBUTYNIN CHL 5 MG TAB PO SCH ×3 (06:52→22:40)
[2016-11-18] MEDS: LEVOTHYROXINE SODIUM 50 MCG TAB PO SCH (06:52)
[2016-11-18 08:58] VITALS: BP 136/68
[2016-11-18] MEDS: PANTOPRAZOLE 40 MG/10 ML VIAL IV SCH (09:44)
[2016-11-18] MEDS: cefTRIAXone 1GM/50ML D5W 50 ML IV SCH (09:44)
[2016-11-18] MEDS: ACETAMINOPHEN 325 MG TAB PO PRN ×2 (09:45→20:15)
[2016-11-18] MEDS: APIXABAN 5 MG TAB PO SCH ×2 (09:45→22:40)
[2016-11-18] MEDS: NIFEdipine ER 30 MG TAB PO SCH (09:46)
[2016-11-18] MEDS: METOPROLOL TARTRATE 50 MG TAB PO SCH ×2 (09:47→22:41)
[2016-11-18 12:43] VITALS: BP 124/69
[2016-11-18 17:00] VITALS: BP 110/84
[2016-11-18 20:00] VITALS: BP 115/70
[2016-11-18 22:00] VITALS: BP 115/70
[2016-11-18] MEDS: ATORVASTATIN 20 MG TAB PO SCH (22:40)
[2016-11-19 05:30] VITALS: BP 125/55
[2016-11-19] MEDS: BOOST PLUS 8 ounce PO SCH ×4 (06:14→21:58)
[2016-11-19] MEDS: OXYBUTYNIN CHL 5 MG TAB PO SCH ×3 (06:15→21:58)
[2016-11-19] MEDS: LEVOTHYROXINE SODIUM 50 MCG TAB PO SCH (06:21)
[2016-11-19] MEDS: cefTRIAXone 1GM/50ML D5W 50 ML IV SCH (08:59)
[2016-11-19] MEDS: PANTOPRAZOLE 40 MG/10 ML VIAL IV SCH (08:59)
[2016-11-19] MEDS: APIXABAN 5 MG TAB PO SCH ×2 (08:59→21:58)
[2016-11-19 09:00] VITALS: BP 149/71
[2016-11-19] MEDS: NIFEdipine ER 30 MG TAB PO SCH (09:01)
[2016-11-19] MEDS: METOPROLOL TARTRATE 50 MG TAB PO SCH ×2 (09:01→21:59)
[2016-11-19 13:00] VITALS: BP 135/68
[2016-11-19] MEDS: SODIUM CHLORIDE 0.9% 1,000 ML IV SCH (13:04)
[2016-11-19 17:00] VITALS: BP 129/65
[2016-11-19 20:00] VITALS: BP 146/59
[2016-11-19] MEDS: ATORVASTATIN 20 MG TAB PO SCH (21:58)
[2016-11-19 22:08] VITALS: BP 146/59
[2016-11-20] VITALS (7 sets, daily range): BP systolic 121–164; BP diastolic 53–74
[2016-11-20] MEDS: SODIUM CHLORIDE 0.9% 1,000 ML IV SCH ×2 (05:22→21:35)
[2016-11-20] MEDS: BOOST PLUS 8 ounce PO SCH ×4 (06:00→21:35)
[2016-11-20] MEDS: OXYBUTYNIN CHL 5 MG TAB PO SCH ×3 (06:39→21:36)
[2016-11-20] MEDS: LEVOTHYROXINE SODIUM 50 MCG TAB PO SCH (06:39)
[2016-11-20] MEDS: cefTRIAXone 1GM/50ML D5W 50 ML IV SCH (09:00)
[2016-11-20] MEDS: PANTOPRAZOLE 40 MG/10 ML VIAL IV SCH (10:06)
[2016-11-20] MEDS: NIFEdipine ER 30 MG TAB PO SCH (10:07)
[2016-11-20] MEDS: METOPROLOL TARTRATE 50 MG TAB PO SCH ×2 (10:07→21:36)
[2016-11-20] MEDS: APIXABAN 5 MG TAB PO SCH ×2 (17:05→21:36)
[2016-11-20] MEDS: ATORVASTATIN 20 MG TAB PO SCH (21:36)
[2016-11-21 05:02] VITALS: BP 139/66
[2016-11-21] MEDS: BOOST PLUS 8 ounce PO SCH ×3 (06:07→18:20)
[2016-11-21] MEDS: OXYBUTYNIN CHL 5 MG TAB PO SCH ×2 (06:07→15:51)
[2016-11-21] MEDS: LEVOTHYROXINE SODIUM 50 MCG TAB PO SCH (06:08)
[2016-11-21 08:00] VITALS: BP 136/69
[2016-11-21 08:23] VITALS: BP 136/69
[2016-11-21] MEDS: cefTRIAXone 1GM/50ML D5W 50 ML IV SCH (09:00)
[2016-11-21] MEDS: PANTOPRAZOLE 40 MG/10 ML VIAL IV SCH (10:00)
[2016-11-21] MEDS: APIXABAN 5 MG TAB PO SCH (10:18)
[2016-11-21] MEDS: NIFEdipine ER 30 MG TAB PO SCH (10:19)
[2016-11-21] MEDS: METOPROLOL TARTRATE 50 MG TAB PO SCH (10:20)
[2016-11-21] MEDS: ACETAMINOPHEN 325 MG TAB PO PRN (10:28)
[2016-11-21 12:30] VITALS: BP 131/69
[2016-11-21] MEDS: SODIUM CHLORIDE 0.9% 1,000 ML IV SCH (14:02)
== END 2016-11-21 20:34 | DRG 45 ==
LOC: ER 23:47 → OVERFLOW 23:48 → EAST 11-14 08:35 → WEST WING 11-14 10:37
PROVIDERS: ADMIT Family Medicine; ATTEND Family Medicine
DX: I63.9 Cerebral infarction, unspecified (principal); G93.1 Anoxic brain damage, not elsewhere classified; E44.0 Moderate protein-calorie malnutrition; D68.69 Other thrombophilia; I48.92 Unspecified atrial flutter; G81.91 Hemiplegia, unspecified affecting right dominant side; I50.9 Heart failure, unspecified; I11.0 Hypertensive heart disease with heart failure; I48.91 Unspecified atrial fibrillation; R47.01 Aphasia; H53.461 Homonymous bilateral field defects, right side; E03.9 Hypothyroidism, unspecified; R25.2 Cramp and spasm; I25.10 Atherosclerotic heart disease of native coronary artery without angina pectoris; E78.5 Hyperlipidemia, unspecified; K21.9 Gastro-esophageal reflux disease without esophagitis; R32 Unspecified urinary incontinence; Z79.01 Long term (current) use of anticoagulants; Z79.899 Other long term (current) drug therapy; Z68.26 Body mass index [BMI] 26.0-26.9, adult; Z71.3 Dietary counseling and surveillance
CPT/HCPCS: 36415; 70450; 70551; 71010; 80053; 80061; 80320; 81001; 83605; 83735; 84484; 85025; 85610; 85730; 87040; 87086; 92610; 93005; 95819; 96365; 97110; 97163; 97530; C9113; J0696